=== PATIENT | female | born 1990 | race American Indian/Alaskan Native ===

== ENCOUNTER 2017-08-01 21:31 | Emergency (ER) | payer SELFPAY ==
[2017-08-02] MEDS ORDERED: NORCO 5/325 PO ONE (04:07)
--- NOTE | 2017-08-02 04:07 | Emergency Department Report ---
ED ENT HPI - General Chief complaint: Dental/Oral Stated complaint: TOOTHACHE,H/A,OBJECT IN EAR Time Seen by Provider: 08/02/17 03:42 Source: patient Mode of arrival: Ambulatory Limitations: No Limitations - History of Present Illness Initial comments: This is a 26 y.o. female presents with toothache and ear pain on left upper side of mouth. Patient states she cleaned out ears with a Qtip 2 weeks ago and the tip didn't return from left ear. She went to [facility] in [place], [place] and no one could remove it. She was not having pain at that time. Yesterday the pain in mouth on left side or left ear is 10/10 on pain scale. It is a constant throbbing sensation. She can't tell if the pain is coming from her left ear or one of her teeth. Pain is so severe she have a migraine that will not resolve. She has tried ice and NSAID's with minimal improvement. Denies discharge, swelling, or change in hearing. MD complaint: tooth pain (left side of face), ear pain (left ear), trauma/ injury (Qtip lodged in left ear) -: week(s) (2) Location: L ear Severity: moderate Severity scale (0 -10): 10 Quality: stabbing, aching, constant Consistency: constant Improves with: none Worsens with: swallowing, eating, movement Context- Dental: history of dental caries, trauma (Qtip lodged in left ear) Associated Symptoms: toothache, pain with swallowing. denies: sore throat, tinnitus, hearing loss, discharge from ear, rhinorrhea - Related Data Previous Rx's Medication Instructions Recorded Last Taken Type Amoxicillin/K Clav Tab [Augmentin 1 tab PO Q12HR 5 Days #10 tab 08/02/17 Unknown Rx 875MG TAB] traMADol [Ultram 50 MG tab] 50 mg PO Q6H PRN #20 tablet 08/02/17 Unknown Rx Allergies Allergy/AdvReac Type Severity Reaction Status Date / Time No Known Allergies Allergy Unverified 08/01/17 21:35 ED Dental HPI - General Chief complaint: Dental/Oral Stated complaint: TOOTHACHE,H/A,OBJECT IN EAR Time Seen by Provider: 08/02/17 03:42 - Related Data Previous Rx's Medication Instructions Recorded Last Taken Type Amoxicillin/K Clav Tab [Augmentin 1 tab PO Q12HR 5 Days #10 tab 08/02/17 Unknown Rx 875MG TAB] traMADol [Ultram 50 MG tab] 50 mg PO Q6H PRN #20 tablet 08/02/17 Unknown Rx Allergies Allergy/AdvReac Type Severity Reaction Status Date / Time No Known Allergies Allergy Unverified 08/01/17 21:35 ED Review of Systems ROS: Stated complaint: TOOTHACHE,H/A,OBJECT IN EAR Other details as noted in HPI Constitutional: denies: chills, fever ENT: ear pain (left ear pain from lodged qtip), dental pain (pain on left side of upper teeth). denies: throat pain, congestion Respiratory: denies: cough, shortness of breath, wheezing Cardiovascular: denies: chest pain, palpitations Gastrointestinal: denies: abdominal pain, nausea, diarrhea Neurological: headache. denies: weakness, paresthesias ED Past Medical Hx - Past Medical History Previous Medical History?: No - Surgical History Past Surgical History?: No - Social History Smoking Status: Never Smoker Substance Use Type: None - Medications Home Medications: Home Medications Medication Instructions Recorded Confirmed Last Taken Type Amoxicillin/K Clav Tab [Augmentin 1 tab PO Q12HR 5 Days #10 tab 08/02/17 Unknown Rx 875MG TAB] traMADol [Ultram 50 MG tab] 50 mg PO Q6H PRN #20 tablet 08/02/17 Unknown Rx ED Physical Exam - General Limitations: No Limitations General appearance: alert, in no apparent distress - ENT ENT exam: Present: mucous membranes moist. Absent: TM's normal bilaterally ( white cotton obscured landmarks in left ear) - Respiratory Respiratory exam: Present: normal lung sounds bilaterally. Absent: respiratory distress - Cardiovascular Cardiovascular Exam: Present: regular rate, normal rhythm. Absent: systolic murmur, diastolic murmur, rubs, gallop - GI/Abdominal GI/Abdominal exam: Present: soft, normal bowel sounds - Neurological Exam Neurological exam: Present: alert, oriented X3, normal gait ED Course Vital Signs 08/01/17 08/02/17 21:33 04:14 Temperature 98.6 F Pulse Rate 85 Respiratory 18 18 Rate Blood Pressure 108/72 O2 Sat by Pulse 95 Oximetry ED Medical Decision Making - Medical Decision Making This is a 26-year-old female that presents with left side facial pain. A qtip is lodged in left ear for 2 weeks. She is not sure if pain is coming from left ear or teeth. Denies facial swelling, numbness/tingling, discharge, odor, hearing loss, or fever. Patient is stable and was examined by me. Given norco 5 /325 mg po once in ER. On physical assessment no signs of dental abscess, multiple feeling on upper and lower, right and left sides. White cotton obscure landmarks in left ear. Failed attempt to remove cotton with alligator forceps. Referral to ENT and start tramadol for pain. Discussed plan with patient and she agreed. Discharged home with tramadol 50 mg po q6h PRN for pain. Follow up with ENT. Critical care attestation.: If time is entered above; I have spent that time in minutes in the direct care of this critically ill patient, excluding procedure time. ED Disposition Clinical Impression: Left ear pain, Toothache Left ear injury Qualifiers: Encounter type: initial encounter Qualified Code(s): S09.91XA - Unspecified injury of ear, initial encounter Migraine Qualifiers: Migraine type: without aura Status migrainosus presence: with status migrainosus Intractability: not intractable Qualified Code(s): G43.001 - Migraine without aura, not intractable, with status migrainosus Disposition: TO HOME OR SELFCARE Is pt being admited?: No Does the pt Need Aspirin: No Condition: Stable Instructions: Cerumen Impaction (ED), Dental Caries (ED) Additional Instructions: Take antibiotics as prescribed for the full course. Don't but anything in affected ear including fingers, to avoid damaging ear drum. Follow up with ENT in 1-3 days. Return to ER if red, swollen, foul discharge, or fever. Prescriptions: Amoxicillin/K Clav Tab [Augmentin 875MG TAB] 1 tab PO Q12HR 5 Days #10 tab traMADol [Ultram 50 MG tab] 50 mg PO Q6H PRN #20 tablet PRN Reason: Pain Referrals: HUMZA EAGLE MD [Staff Physician] - 3-5 Days AMI ANTHONY MD [Staff Physician] - 3-5 Days [facility] [Outside] - 3-5 Days Time of Disposition: 04:47 Print Language: MONEGAS[place]
[2017-08-02 05:13] VITALS: BP 109/72
== END 2017-08-02 05:13 | disposition home or self-care (01) ==
LOC: ED 21:31
DX: S09.91XA Unspecified injury of ear, initial encounter (principal); G43.001 Migraine without aura, not intractable, with status migrainosus; K08.89 Other specified disorders of teeth and supporting structures; X58.XXXA Exposure to other specified factors, initial encounter; Y93.89 Activity, other specified; Y99.8 Other external cause status; Y92.89 Other specified places as the place of occurrence of the external cause
CPT/HCPCS: 99282